=== PATIENT | male | born 1970 | race Hispanic/Latino ===

== ENCOUNTER 2023-11-21 19:57 | Emergency (ER) | payer BC ==
[2023-11-21] MEDS ORDERED: Sodium Chloride 0.9% 1,000 ML ONE (20:08)
[2023-11-21] MEDS ORDERED: diphenhydrAMINE 50 MG/ML VIAL ONE (20:08)
[2023-11-21] MEDS ORDERED: methylPREDNISolone Sod Succ/PF 125 MG/2 ML VIAL ONE (20:08)
[2023-11-21] MEDS ORDERED: Ondansetron PF 4 MG/2 ML Vial ONE (20:21)
== END 2023-11-21 21:45 | disposition home or self-care (01) ==
LOC: NAV ERS 19:57
DX: T78.40XA Allergy, unspecified, initial encounter (principal)
CPT/HCPCS: 96374; 96375; J1200; J2405; J2919; J7030